=== PATIENT | female | born 1955 | race Caucasian/White ===

== ENCOUNTER → 2016-09-23 | Outpatient (CLI) | payer BC ==
--- NOTE | ~2016-09-23 | MY11 ---
[facility] A Service of [facility] RADIOLOGY TEXT RESULTS PATIENT: PIPPA LESTER LOCATION: [facility] : 57 UNIT #: [id number] AGE: [address]: Joseph Raygoza MD SEX: F ORDER DR: [id number] [facility]. [place], [place] [address] [id number] O MR#: [id number] Acc #: [id number] NAME: PIPPA LESTER : 1955 SEX: F STUDY DATE/TIME: 09/23/2016 10:07 UNIT: [facility] ROOM: STUDY DESCRIPTION: MY Mammogram Screening Dig Kt Attending Physician: Joseph Raygoza M.D. Referring Physician: Joseph Raygoza M.D. Ordering Physician: Joseph Raygoza M.D. Primary Care Physician: Joseph Raygoza M.D. MEDICAL IMAGING REPORT This report is preliminary unless electronic signature is present EXAM Bilateral Digital Screening Mammogram with CAD INDICATION Breast cancer screening. 61-year-old asymptomatic female. No personal or family history of breast cancer. COMPARISON 08/07/2015, 08/08/2014, 07/26/2013 FINDINGS The breasts are almost entirely fatty. No suspicious findings are present. IMPRESSION No mammographic evidence of malignancy. Annual screening mammography and clinical breast exam are recommended. A result letter will be sent to the patient. Patients over the age of 40 are entered into a reminder system with target due date for the next mammogram. BIRADS: 1 Negative Dictated by... William Burgos M.D. THIS IS AN ELECTRONICALLY VERIFIED REPORT William Burgos M.D. at 09/25/2016 11:00 AM MICHELE/aa [facility] A Service [facility] RADIOLOGY TEXT RESULTS PATIENT: PIPPA LESTER LOCATION: [facility] : 57 UNIT #: [id number] AGE: [address]: Joseph Raygoza MD SEX: F ORDER DR: TD: 09/23/2016 13:42 JOB #: [id number] MEDICAL IMAGING REPORT Page 1 of 1 COPY
== END | disposition home or self-care (01) ==
LOC: CWCC 09:45
DX: Z12.31 Encounter for screening mammogram for malignant neoplasm of breast (principal)
CPT/HCPCS: G0202